=== PATIENT | male | born 1975 | race Caucasian/White ===

== ENCOUNTER 2016-07-13 14:57 | Emergency (ER) | payer OTHER ==
--- NOTE | ~2016-07-13 | CR2 ---
[facility]. [facility] A Service of [facility] & [facility] RADIOLOGY TEXT RESULTS PATIENT: ERICKA HILLMAN LOCATION: SED : 79 UNIT #: [id number] AGE: [address]: Fareed Boyer MD SEX: M ORDER DR: [id number] [place] [id number] E MR#: [id number] Acc #: [id number] NAME: ERICKA HILLMAN. : 1975 SEX: M STUDY DATE/TIME: 07/13/2016 14:57 UNIT: SED ROOM: STUDY DESCRIPTION: CR Abdomen Acute Series Attending Physician: Fareed Boyer M.D. Referring Physician: Fareed Boyer M.D. Ordering Physician: Fareed Boyer M.D. Primary Care Physician: No Primary Care Physician MEDICAL IMAGING REPORT This report is preliminary unless electronic signature is present. EXAM Acute abdominal series INDICATIONS 40-year-old male with mid abdominal pain for 1 day. There are no comparisons available. FINDINGS The PA view of the chest is normal. Flat and upright view of the abdomen demonstrates a nonobstructed bowel gas pattern. There is no free air under the diaphragm. IMPRESSION Nonobstructed bowel gas pattern Dictated by... Vinny Rosario M.D. THIS IS AN ELECTRONICALLY VERIFIED REPORT Vinny Rosario M.D. at 07/16/2016 8:32 AM SOPHY/erika TD: 07/13/2016 22:23 JOB #: [id number] MEDICAL IMAGING REPORT
[~2016-07-13 14:57] MED LIST: NO MEDICATIONS
[2016-07-13 15:00] LABS: BASOPHIL# 0.1 X10e3 (0-0.3); BASOPHIL% 0.6 % (0-2.5); EOSINOPHIL% 0.5 % (0.0-7.0); HEMATOCRIT 44.1 % (38.0-50.0); HEMOGLOBIN 14.5 gm/dL (13.0-16.0); LYMPHOCYTE# 1.4 X10e3 (1.0-3.5); MEAN CELL VOLUME 89.3 FL (83-96); MEAN CORPUSCULAR HEMOGLOBIN 29.4 PG (28-34); MEAN PLATELET VOLUME 11.7 FL (6.5-11.5); MONOCYTE# 0.6 X10e3 (0-1.0); MONOCYTE% 5.2 % (3.0-12.0); NEUTROPHIL# 8.6 X10e3 (1.5-7.1); NEUTROPHIL% 80.7 % (40-75); PLATELET COUNT 168 X10e3 (140-420); RED BLOOD COUNT 4.94 X10e (3.90-5.60); RED CELL DISTRIBUTION WIDTH 14.1 % (11.0-15.5); WHITE BLOOD COUNT 10.7 X10e3 (4.0-10.5)
[2016-07-13 15:06] LABS: DIFF IND NO
[2016-07-13 15:20] LABS: ALBUMIN SERUM 4.9 g/dL (3.5-5.0); ALKALINE PHOSPHATASE 67 U/L (32-92); ALT (SGPT) 14 U/L (10-40); AST (SGOT) 20 U/L (10-42); BILIRUBIN, DIRECT 0.1 mg/dL (0.0-0.2); BILIRUBIN,INDIRECT 0.6 mg/dL (0.0-0.9); BILIRUBIN,TOTAL 0.7 mg/dL (0.2-2.0); BLOOD UREA NITROGEN 14 mg/dL (9-23); BUN/CREATININE RATIO 15.55; CALCIUM SERUM 9.4 mg/dL (8.4-10.2); CARBON DIOXIDE 23 mmol/L (22-31); CHLORIDE 105 mmol/L (100-111); CREATININE SERUM 0.9 mg/dL (0.6-1.4); GLOM FILT RATE Estimated ABOVE60 mL/min (>60); GLUCOSE FASTING 108 mg/dL (70-110); LIPASE 37 U/L (22-51); POTASSIUM 3.8 mmol/L (3.5-5.1); PROTEIN TOTAL SERUM 7.6 g/dL (6.0-8.3); SODIUM 137 mmol/L (135-145)
[2016-07-13 15:55] LABS: URINE SOURCE CLEAN CATCH
[2016-07-13 15:57] LABS: URINE APPEARANCE SL CLOUDY; URINE BILIRUBIN NEG (NEG); URINE BLOOD NEG (NEG); URINE COLOR YELLOW; URINE GLUCOSE NEG (NORM); URINE KETONE NEG (NEG); URINE LEUKOCYTE ESTERASE NEG (NEG); URINE NITRATE NEG (NEG); URINE PROTEIN NEG (NEG); URINE SPECIFIC GRAVITY 1.015 (1.003-1.035); URINE UROBILINOGEN 0.2 MG/DL (NORM)
[2016-07-13 16:00] LABS: MICRO INDICATED? NO
== END 2016-07-13 16:40 | disposition home or self-care (01) ==
LOC: SED 14:57
PROVIDERS: Emergency Medicine
DX: R10.9 Unspecified abdominal pain (principal); R11.0 Nausea; R19.7 Diarrhea, unspecified; Z98.890 Other specified postprocedural states
CPT/HCPCS: 36415; 74022; 80048; 80076; 81003; 83690; 85025; 96374; 96375; 99284; J2405